=== PATIENT | female | born 1985 | race Caucasian/White ===

== ENCOUNTER 2018-08-06 15:06 | Inpatient (IN) | payer OTHER ==
[~2018-08-06] VITALS: Ht 165.1 cm; Wt 3.2 kg
[~2018-08-06 15:06] MED LIST: FOLIC ACID1 MG PO; IRON325 MG PO
[2018-08-12] MEDS ORDERED: PRENATAL TABLE1 EACH PO (07:35)
== END 2018-08-15 13:56 | DRG 766 ==
LOC: O/R 08-12 05:34 → OB/GYN 08-12 05:34
PROVIDERS: Specialist
PROC: 0UB70ZZ Excision of Bilateral Fallopian Tubes, Open Approach (ICD-10-PCS; 2018-08-12)
PROC: 4A1HXCZ Monitoring of Products of Conception, Cardiac Rate, External Approach (ICD-10-PCS; 2018-08-12)
PROC: 4A033R1 Measurement of Arterial Saturation, Peripheral, Percutaneous Approach (ICD-10-PCS; 2018-08-12)
PROC: 10D00Z1 Extraction of Products of Conception, Low, Open Approach (ICD-10-PCS; principal; 2018-08-12 07:00)
DX: O34.211 Maternal care for low transverse scar from previous cesarean delivery (principal); O75.82 Onset (spontaneous) of labor after 37 completed weeks of gestation but before 39 completed weeks gestation, with delivery by (planned) cesarean section; Z3A.39 39 weeks gestation of pregnancy; Z37.0 Single live birth; Z30.2 Encounter for sterilization